=== PATIENT | male | born 1990 | race African-American/Black ===

== ENCOUNTER 2018-06-07 19:58 | Emergency (ER) | payer OTHER ==
[~2018-06-07] VITALS: Ht 190.5 cm; Wt 88.5 kg
[~2018-06-07 19:58] MED LIST: CIPROFLOXACIN500 M1 PO; FLEXERIL PO; FLONASE 0.05%50 MCG NASAL; NOHOMEMEDICATIONS; NORCO 5-325 TA1 EACH PO; ULTRAM 50MG TAB50 MG PO; ZOFRAN ODT4 MG PO
[2018-06-07 20:16] LABS: URINE BILIRUBIN NEGATIVE (Negative); URINE BLOOD NEGATIVE (Negative); URINE CLARITY CLEAR; URINE COLOR YELLOW; URINE GLUCOSE-RANDOM* NEGATIVE (Negative); URINE KETONES NEGATIVE (Negative); URINE LEUKOCYTES-REFLEX TRACE (Negative); URINE NITRITE-REFLEX NEGATIVE (Negative); URINE PROTEIN (DIPSTICK) NEGATIVE (Negative); URINE UROBILINOGEN 0.2 E.U./dl (0.2-1.0)
[2018-06-07 20:31] LABS: HEMATOCRIT 43.9 % (42.0-52.0); HEMOGLOBIN 15.1 gm/dL (14.0-18.0); MCH 29.8 pg (26.0-34.0); MCHC 34.3 g/dL (28.0-37.0); MCV 86.7 fL (80.0-100.0); PLATELET COUNT 249 thou/uL (150-400); RBC 5.06 mil/uL (4.50-6.00); RDW 13.1 % (10.5-14.5); WBC 9.2 thou/uL (4.0-11.0)
[2018-06-07 20:35] LABS: CALCIUM 9.4 mg/dL (8.5-10.1); CREATININE 0.8 mg/dL (0.7-1.3); POTASSIUM 3.7 mmol/L (3.5-5.1)
[2018-06-07 20:41] LABS: ALBUMIN 4.2 g/dL (3.4-5.0); TOTAL BILIRUBIN 0.4 mg/dL (<0.1-1.0); TOTAL PROTEIN 7.5 g/dL (6.4-8.2)
[2018-06-07] MEDS ORDERED: PRILOSEC 20 MG20 MG PO (21:10)
[2018-06-07] MEDS ORDERED: ZOFRAN ODT4 MG DISSOLVE (21:10)
[2018-06-07] MEDS ORDERED: TRAMADOL 50 MG50 MG PO (21:10)
[2018-06-07 21:16] LABS: ATYPICAL LYMPHS 3 %
[2018-06-07 21:30] VITALS: BP 110/67
== END 2018-06-07 21:37 | disposition home or self-care (01) ==
LOC: ER 19:58
PROVIDERS: Emergency Medicine
DX: K59.00 Constipation, unspecified (principal); R11.2 Nausea with vomiting, unspecified; R10.9 Unspecified abdominal pain; G43.909 Migraine, unspecified, not intractable, without status migrainosus; Z90.49 Acquired absence of other specified parts of digestive tract

== ENCOUNTER 2018-10-02 21:47 | Emergency (ER) | payer OTHER ==
[~2018-10-02] VITALS: Ht 190.5 cm; Wt 89.4 kg
[~2018-10-02 21:47] MED LIST changes: +PRILOSEC 20 MG20 MG PO; +TRAMADOL 50 MG50 MG PO; +ZOFRAN ODT4 MG DISSOLVE
[2018-10-02 23:05] LABS: URINE BILIRUBIN NEGATIVE (Negative); URINE BLOOD NEGATIVE (Negative); URINE CLARITY CLEAR; URINE COLOR YELLOW; URINE GLUCOSE-RANDOM* NEGATIVE (Negative); URINE KETONES NEGATIVE (Negative); URINE NITRITE-REFLEX NEGATIVE (Negative); URINE PROTEIN (DIPSTICK) NEGATIVE (Negative); URINE UROBILINOGEN 0.2 E.U./dl (0.2-1.0)
[2018-10-02 23:16] LABS: URINE LEUKOCYTES-REFLEX 1+ (Negative)
[2018-10-02 23:31] LABS: BACTERIA-REFLEX 1-9 Few /HPF (None Seen); CRYSTALS None Seen /LPF (None Seen); HYALINE CASTS 0-3 Few /LPF (None Seen); MUCUS 0-3 Light strn/LPF (None Seen); SQUAMOUS 0-3 Few /LPF (0-3); URINE RBC 0-2 Rare /HPF (0-2)
[2018-10-02 23:35] LABS: ABSOLUTE NEUTROPHILS 4.2 thou/uL (1.4-8.2); BASOPHILS 0.9 % (0.0-2.0); EOSINOPHILS 4.1 % (0.0-3.0); HEMATOCRIT 44.4 % (42.0-52.0); HEMOGLOBIN 15.3 gm/dL (14.0-18.0); LYMPHOCYTES 28.2 % (24.0-44.0); MCH 29.6 pg (26.0-34.0); MCHC 34.6 g/dL (28.0-37.0); MCV 85.7 fL (80.0-100.0); MONOCYTES 8.5 % (1.0-8.0); PLATELET COUNT 250 thou/uL (150-400); POLYS 58.3 % (36.0-66.0); RBC 5.18 mil/uL (4.50-6.00); RDW 13.3 % (10.5-14.5); WBC 7.2 thou/uL (4.0-11.0)
[2018-10-02 23:39] LABS: CALCIUM 8.7 mg/dL (8.5-10.1); POTASSIUM 3.2 mmol/L (3.5-5.1)
[2018-10-02 23:45] LABS: ALBUMIN 3.9 g/dL (3.4-5.0); TOTAL BILIRUBIN 0.7 mg/dL (<0.1-1.0); TOTAL PROTEIN 7.1 g/dL (6.4-8.2)
[2018-10-03] MEDS ORDERED: ZOFRAN ODT4 MG PO (00:29)
[2018-10-03 00:37] VITALS: BP 110/64
== END 2018-10-03 00:41 | disposition home or self-care (01) ==
LOC: ER 21:47
PROVIDERS: Emergency Medicine
DX: K52.9 Noninfective gastroenteritis and colitis, unspecified (principal); Z90.49 Acquired absence of other specified parts of digestive tract